=== PATIENT | male | born 1955 | race Two or more races ===

== ENCOUNTER 2018-12-23 11:17 | Emergency (ER) | payer MEDICAID ==
[~2018-12-23] VITALS: Ht 185.4 cm; Wt 115.7 kg
[2018-12-23 12:55] LABS: Basophils # (auto) 0.3 uL; Basophils % (auto) 3.3 % (0.0-2.0); Eosinophils # (auto) 0.1 uL; Eosinophils % (auto) 0.7 % (0.0-7.0); Hemoglobin 15.3 g/dL (13.5-17.5); Lymphocytes % (auto) 13.2 % (10.0-50.0); Mean Corpuscular Hemoglobin 29.4 pg (28.0-32.0); Mean Corpuscular Hgb Conc. 33.2 g/dL (32.0-36.0); Mean Corpuscular Volume 88.6 fL (80.0-100.0); Monocytes # (auto) 1.1 uL; Monocytes % (auto) 14.1 % (0.0-12.0); Neutrophils # (auto) 5.4 uL; Neutrophils % (auto) 68.7 % (37.0-80.0); Platelet Count (auto) 237 10^3/uL (140-450); Red Blood Cells 5.19 10^6/uL (4.5-5.90); Red Cell Distribution Width 14.2 % (11.8-14.3); White Blood Cell 7.9 10^3/uL (4.4-10.8)
[2018-12-23 13:07] LABS: Alanine Aminotransferase 32 U/L (16-61); Albumin 3.5 g/dL (3.4-5.0); Anion Gap 7 (5-15); Aspartate Aminotransferase 20 U/L (15-37); Blood Urea Nitrogen 8 mg/dL (7-18); Calcium 8.4 mg/dL (8.5-10.1); Carbon Dioxide 25 mmol/L (21-32); Chloride 107 mmol/L (98-107); Glucose 124 mg/dL (74-106); Potassium 3.9 mmol/L (3.5-5.1); Sodium 139 mmol/L (136-145)
[2018-12-23 13:12] LABS: Alkaline Phosphatase 79 U/L (45-117); BUN/Creatinine Ratio 9.1; Bilirubin, Total 1.1 mg/dL (0.2-1.0); GFR African American 113 mL/min; GFR Non-African American 94 mL/min; Total Protein 7.3 g/dL (6.4-8.2)
[2018-12-23 14:04] VITALS: BP 131/75
== END 2018-12-23 14:50 | disposition home or self-care (01) ==
LOC: ER 11:17
DX: S82.52XA Displaced fracture of medial malleolus of left tibia, initial encounter for closed fracture (principal); F17.210 Nicotine dependence, cigarettes, uncomplicated; R42 Dizziness and giddiness; W19.XXXA Unspecified fall, initial encounter; Y93.89 Activity, other specified; Y92.89 Other specified places as the place of occurrence of the external cause; Y99.8 Other external cause status
CPT/HCPCS: 29515; 36415; 71045; 73610; 80053; 83880; 84484; 85025